=== PATIENT | male | born 1945 | race Caucasian/White ===

== ENCOUNTER 2021-08-10 01:06 | Outpatient (CLI) | payer MEDICARE, SELFPAY ==
[2021-08-10 11:55] LABS: Source Nasal/Nares
[2021-08-10 16:25] LABS: COVID-19 PCR Negative (Negative)
== END 2021-08-10 01:07 | disposition home or self-care (01) ==
LOC: LBO 01:06
PROVIDERS: PCP Internal Medicine; Visit Provider Ophthalmology
DX: Z20.822 Contact with and (suspected) exposure to COVID-19 (principal); Z01.818 Encounter for other preprocedural examination
CPT/HCPCS: 87635

== ENCOUNTER 2021-08-12 09:00 | Day surgery (SDC) | payer MEDICARE, SELFPAY ==
[2021-08-12 09:17] VITALS: BP 150/95; PULSE 77; RESP 16; TEMP 36.2; O2SAT 98
[2021-08-12] MEDS: Tropicam./Phenyleph. (1/2.5%) 5 ML BTL OD ×3 (09:25→09:35)
--- NOTE | 2021-08-12 09:59 | ANES.PREOP_ITS ---
General Info Date of Service Date Performed: 08/12/21 Height: 5 ft 6 in Weight: 72.3 kg Body Mass Index (BMI): 25.7 Surgical Procedure: Operation Date: 08/12/21 10:40 Proposed Procedure Side Surgeon p Cataract Extraction with IOL Implant Right Guanaco Hilton MD Meds Allergies and Home Medications Allergies Allergy/AdvReac Type Severity Reaction Status Date / Time No Known Allergies Allergy Verified 08/12/21 09:22 Home Medication Medication Instructions Recorded rosuvastatin 20 mg tablet 20 mg PO DAILY 08/11/21 amlodipine 5 mg tablet 5 mg PO DAILY 08/12/21 Current Visit Medications: Current Medications Generic Name Dose Route Start Last Admin Trade Name Freq PRN Reason Stop Dose Admin Acetaminophen 1,000 mg 08/12/21 06:00 Acetaminophen 500 Mg Tab PO Q4H PRN PRN Miscellaneous Medication 0 ml 08/12/21 06:00 Prednisolone 1%, Moxifloxacin 0.5%, Nepafenac 0.1% 5ml Btl OD DIRECTED [facility] Miscellaneous Medication 0 ml 08/12/21 06:00 08/12/21 09:35 Tropicam./Phenyleph. (1/2.5%) 5 Ml Btl OD 1 drp DIRECTED BENEDICT Administration Tetracaine HCl 0 ml 08/12/21 06:00 Tetracaine 0.5% 4 Ml Btl OD DIRECTED [facility] Medical History Medical History Alcoholism BPH (benign prostatic hyperplasia) Chronic kidney disease, stage 2 (mild) Colon polyps Dizziness Gastric ulcer GERD (gastroesophageal reflux disease) Hypercholesterolemia Hypertension Lung nodule Nephrolithiasis Neuropathy Spinal fracture, closed Unilateral recurrent inguinal hernia without obstruction or gangrene Surgical History Surgical History Repair of inguinal hernia Tobacco Smoking/Tobacco Use Status: Former Tobacco Use Alcohol Alcohol Intake: former Substance Use Substance use type: does not use Vital Signs and Lab Results Vital Signs Most Recent Vital Signs in EMR: Most Recent Vital Signs Temp Pulse Resp BP Pulse Ox 36.2 C L 77 16 150/95 H 98 08/12/21 09:17 08/12/21 09:17 08/12/21 09:17 08/12/21 09:17 08/12/21 09:17 Lab Results Blood Type / Crossmatch: No Data to Display Complete Blood Count: No Data to Display Complete Metabolic Panel: No Data to Display Liver Function Panel: No Data to Display Coagulation Panel: No Data to Display Cardiac Panel: No Data to Display Arterial Blood Gas: No Data to Display Venous Blood Gas: No Data to Display Pancreas Panel: No Data to Display Thyroid Panel: No Data to Display Infectious Disease: Coronavirus (COVID-19)(PCR) Negative (Negative) 08/10/21 10:37 08/10/21 Coronavirus 2019 Source Nasal/Nares 08/10/21 10:37 08/10/21 Blood Cultures: No Data to Display Toxicology Panel: No Data to Display Anesthesia Assessment and Plan Anesthesia History Personal History: No History of Anesthesia Complications Family History: No Family History of Anesthesia Complications Exercise Tolerance Exercise Tolerance: Metabolic Equivalents>4 Pertinent Negatives Pertinent Negatives: No Symptoms of GERD Cardiac & Pulmonary Exam Cardiac Exam: Normal S1/S2 Heart Sounds Pulmonary Exam: Clear Bilateral Breath Sounds Implantable Cardiac Device Does patient have a Pacemaker or an ICD?: No Airway Exam Known Difficult Airway: No Mallampati Class: 2 Mouth Opening: Normal (> 3cm) Thyromental Distance: Greater than 3 cm Neck Range of Motion: Full ROM Neck Circumference: Normal Teeth Condition: Normal Dentition ASA Classification ASA Score: ASA 2 Emergency Case?: No NPO Status NPO Status: NPO Clears >2 hours, Solids >8 hours Anesthesia Plan Resuscitation Status: Full Code Anesthesia Technique: MAC Anesthesia Airway Planned: Natural Airway Monitors Used: Standard Monitors
[2021-08-12 10:25] VITALS: BMI 25.7
[2021-08-12] MEDS: Tetracaine 0.5% 4 ML BTL OD (10:39)
[2021-08-12] MEDS: Lidocaine 2% Jelly 6 ML SYR (10:40)
[2021-08-12] MEDS: Triamcinolone 40 MG/ML VIAL (10:55)
[2021-08-12] MEDS: Balanced Salt Soln.-PLUS 500 ML BAG (10:55)
[2021-08-12] MEDS: Duovisc Viscoelastic System EACH 1 EACH (10:56)
[2021-08-12] MEDS: Povidone-Iodine Ophth 30 ML BTL (10:57)
[2021-08-12 11:18] VITALS: BP 146/82; PULSE 62; RESP 16; TEMP 36.7; O2SAT 97
--- NOTE | 2021-08-12 11:18 | W.PM.DSUDISC ---
Discharge Plan Disposition Patient Disposition: HOME Condition: Good Discharge Details Attending Provider: Guanaco Hilton Primary Care Provider: Deysi Goode Home Meds and New Rx's Prescriptions: No Action rosuvastatin 20 mg tablet 20 mg PO DAILY 0RF amlodipine 5 mg tablet 5 mg PO DAILY 0RF Discharge Instructions Stand Alone Forms: Post-op Topical Cataract, Tere Austin ([facility]) Discharge Orders Discharge Orders: Discharge Order (Routine); Ordered 08/12/21 Ordered By: Guanaco Hilton DS: Diagnosis Discharge Diagnosis (1) Cortical cataract of right eye: Status: Resolved (2) Nuclear sclerotic cataract of right eye: Status: Resolved (3) Posterior subcapsular age-related cataract, right eye: Status: Resolved
--- NOTE | 2021-08-12 11:20 | W.PM.OP ---
Date of service: 08/12/21 Time of Service: 11:20 Operative Note Operative Note DATE OF PROCEDURE: 01/17/21 PRE-OP DIAGNOSIS: Nuclear/cortical/posterior subcapsular cataract, right eye Epiretinal membrane/macular pucker, right eye POST-OP DIAGNOSIS: same PROCEDURE: Cataract extraction using phacoemulsification with intraocular lens implant, right eye SURGEON: Guanaco Hilton ANESTHESIA TYPE: Local By Surgeon and MAC Refer to Anesthesia Record ESTIMATED BLOOD LOSS: 0 PATHOLOGY: none sent COMPLICATIONS: None Patient was transported to: same day Patient's condition: stable Implants: Thomas & Thomas/MELY Tecnis [id number] Indications: Progressive visual loss due to cataract, right eye Procedure Description: CATARACT SURGERY OPERATIVE REPORT PREOPERATIVE DIAGNOSIS: 1. Nuclear/cortical/posterior subcapsular cataract, right eye 2. Epiretinal membrane/macular pucker, right eye POSTOPERATIVE DIAGNOSIS: Same OPERATION: 1. Cataract extraction using phacoemulsification with posterior chamber intraocular lens implant, right eye. IOL: IOL Machine Operator Replanter/Model: Thomas & Thomas / MELY Tecnis [id number] IOL Power: + 21.0 diopters IOL Serial Number: [id number] Optic Diameter: 6.0mm Haptic/Overall Diameter: 13.0mm PHACO INFO: Antonio Centurion Vision System with OZil and Active Fluidics Cumulative Dispersed Energy (CDE): 9.28 seconds SURGEON: Guanaco Hilton MD, KIERSTEN ANESTHESIA: Monitored Anesthesia Care (MAC), with local sub-tenon's anesthetic infiltration COMPLICATIONS: None SPECIMENS: None INDICATIONS FOR PROCEDURE: The patient is a 75-year-old gentleman with history of progressive decreased vision in his right eye secondary to the development of nuclear/cortical/posterior subcapsular cataract. He has a history of trauma to the right eye and epiretinal membrane with macular puckering of the right eye. The option of cataract surgery was offered to the patient and he felt he was symptomatic enough that he wished to proceed, understanding that postoperative visual acuity will be limited by the presence of his pre-existing maculopathy. PROCEDURE: The correct surgical eye was identified and marked as the right eye and the pupil was dilated in the preoperative area using mydriatics and cycloplegics. The dilated pupil size was 5.0 mm. He elected to proceed without oral sedation.The patient was brought to the operating room where cardiopulmonary monitoring was instituted and surgical time-out was performed, confirming the correct operative eye and IOL power. Topical anesthesia was administered and ophthalmic povidone-iodine 5% was instilled into the conjunctival fornices. Lidocaine gel was applied to the cornea and the mackenzie-ocular area was prepped with Betadine 10% solution and draped in the usual sterile fashion for intraocular surgery, including an aperture drape. A Tegaderm transparent film dressing was cut in half and used to cover the lashes and lid margins. Care was taken to sequester the lashes and lid margins under the Tegaderm dressing. A lid speculum was placed between the lids of the operative eye and the Antonio [employer] operating microscope was maneuvered into position. Lucina scissors were then used to make a conjunctival buttonhole approximately 6mm posterior to the limbus in the inferonasal quadrant. Blunt dissection was carried out to expose bare sclera, and a blunt-tipped sub-tenon?s anesthesia cannula was introduced and passed posteriorly along the globe where non-preserved plain lidocaine was injected into posterior sub-Tenon?s space. A sideport knife was used to make a paracentesis port inferotemporally. Intraocular phenylephrine/lidocaine was injected into the anterior chamber. The anterior chamber was filled with viscoelastic. A 2.4mm keratome knife was used to create a half-thickness groove at the limbus and then to construct a three-plane near-clear corneal tunnel extending 2.0mm into clear cornea superiortemporally. A flap was raised on the anterior capsule and capsulorhexis forceps were used to complete a continuous curvilinear capsulorhexis of 5.0 mm. Balanced salt solution was then used to perform cortical cleaving hydrodissection and nuclear hydrodelineation until the lens could be freely rotated within the capsular bag. The lens nucleus was then disassembled and removed within the capsular bag and iris plane using phacoemulsification. Residual cortical material was removed using the I/A handpiece. The posterior capsule was carefully polished to remove as much residual lens epithelial cells as safely possible. The capsular bag was then inflated and the anterior chamber deepened with viscoelastic. The lens implant described above was inserted into the capsular bag using the MELY [place] Injector. A Kuglen hook was used to dial the IOL into position. Residual viscoelastic was then removed first from posterior to the IOL, then from the anterior chamber using the I/A handpiece. The lens implant was noted to center nicely within the capsular bag. The incisions were stromally hydrated, and the anterior chamber was reformed using BSS. Then 0.5cc of moxifloxacin 1.0mg/ml were injected into the capsular bag and anterior chamber. The incisions were checked with a Weck spear and found to be secure. Conclusion of the procedure, Kenalog 20 mg in 0.5 cc was injected into the posterior sub-tenon's space using the anesthesia injection cannula. Several drops of ophthalmic povidone-iodine 5% were then applied to the eye followed by two drops of Imprimis combination prednisolone/moxifloxacin/nepafenac solution. The drapes were removed and a clear plastic protective eye shield was placed over the eye. The patient was then returned to Same Day Surgery in stable condition.
--- NOTE | 2021-08-12 12:09 | W.ANESPOSTOP ---
Postoperative Evaluation Date, Time and Location Date Performed: 08/12/21 Time Performed: 11:20 Patient Location: Day Surgery Unit Vital Signs Most Recent Imported Vital Signs: Most Recent Vital Signs Temp Pulse Resp BP Pulse Ox 36.7 C 62 16 146/82 H 97 08/12/21 11:18 08/12/21 11:18 08/12/21 11:18 08/12/21 11:18 08/12/21 11:18 Pain Score Most Recent Pain Score: Most Recent Pain Score Pain Level 0 08/12/21 11:18 Assessment Mental Status: Awake (Alert & Oriented to Patient Baseline) Airway and Respiratory Function: Patent airway with normal (patient baseline) respiratory exam Cardiovascular Function: Hemodynamically Stable Hydration Status: Adequately Hydrated Nausea & Vomiting: No Nausea or Vomiting Pain: Pt. Denies Any Pain Peripheral Nerve Block: Patient did not receive a nerve block
== END 2021-08-12 11:42 | disposition home or self-care (01) ==
PROVIDERS: PCP Internal Medicine; Visit Provider Ophthalmology
PROC: (CPT 66984; principal; 2021-08-12 10:30)
DX: H25.041 Posterior subcapsular polar age-related cataract, right eye (principal); H35.371 Puckering of macula, right eye; I10 Essential (primary) hypertension; E78.00 Pure hypercholesterolemia, unspecified; N40.0 Benign prostatic hyperplasia without lower urinary tract symptoms; N18.2 Chronic kidney disease, stage 2 (mild); K25.3 Acute gastric ulcer without hemorrhage or perforation; F10.21 Alcohol dependence, in remission
CPT/HCPCS: 66984; V2632

== ENCOUNTER 2021-08-24 01:19 | Outpatient (CLI) | payer MEDICARE, SELFPAY ==
[2021-08-24 12:23] LABS: Source Nasal/Nares
[2021-08-24 14:19] LABS: COVID-19 PCR Negative (Negative)
== END 2021-08-24 01:20 | disposition home or self-care (01) ==
LOC: LBO 01:20
PROVIDERS: PCP Internal Medicine; Visit Provider Ophthalmology
DX: Z20.822 Contact with and (suspected) exposure to COVID-19 (principal); Z01.818 Encounter for other preprocedural examination
CPT/HCPCS: 87635

== ENCOUNTER 2021-08-26 08:45 | Day surgery (SDC) | payer MEDICARE, SELFPAY ==
[2021-08-26 09:13] VITALS: BP 137/93; PULSE 71; RESP 16; TEMP 36.3; O2SAT 99
[2021-08-26] MEDS: Tropicam./Phenyleph. (1/2.5%) 5 ML BTL OS ×3 (09:30→09:41)
--- NOTE | 2021-08-26 09:35 | W.ANESPRE ---
General Info Date of Service Date Performed: 08/26/21 Height: 5 ft 6 in Weight: 71.6 kg Body Mass Index (BMI): 25.4 Surgical Procedure: Operation Date: 08/26/21 11:40 Proposed Procedure Side Surgeon p Cataract Extraction with IOL Implant Left Guanaco Hilton MD Meds Allergies and Home Medications Allergies Allergy/AdvReac Type Severity Reaction Status Date / Time No Known Allergies Allergy Verified 08/26/21 09:12 Home Medication Medication Instructions Recorded rosuvastatin 20 mg tablet 20 mg PO DAILY 08/11/21 amlodipine 5 mg tablet 5 mg PO DAILY 08/12/21 Current Visit Medications: Current Medications Generic Name Dose Route Start Last Admin Trade Name Freq PRN Reason Stop Dose Admin Acetaminophen 1,000 mg 08/26/21 06:00 Acetaminophen 500 Mg Tab PO Q4H PRN PRN Miscellaneous Medication 0 ml 08/26/21 06:00 Prednisolone 1%, Moxifloxacin 0.5%, Nepafenac 0.1% 5ml Btl OS DIRECTED [facility] Miscellaneous Medication 0 ml 08/26/21 06:00 08/26/21 09:30 Tropicam./Phenyleph. (1/2.5%) 5 Ml Btl OS 1 drp DIRECTED BENEDICT Administration Tetracaine HCl 0 ml 08/26/21 06:00 Tetracaine 0.5% 4 Ml Btl OS DIRECTED [facility] PFSH Active Problems Active Problems: Problem Status Onset Code Cortical cataract of right eye H26.9 Nuclear sclerotic cataract of right eye H25.11 Posterior subcapsular age-related cataract, right eye H25.041 Nuclear sclerotic cataract of left eye H25.12 Cortical cataract of left eye H26.9 Posterior subcapsular age-related cataract of left eye H25.042 Medical History Medical History Alcoholism BPH (benign prostatic hyperplasia) Chronic kidney disease, stage 2 (mild) Colon polyps Dizziness Gastric ulcer GERD (gastroesophageal reflux disease) Hypercholesterolemia Hypertension Lung nodule Nephrolithiasis Neuropathy Spinal fracture, closed Unilateral recurrent inguinal hernia without obstruction or gangrene Surgical History Surgical History (Updated 08/26/21 @ 09:12 by Joseph Arteaga) Hx of tonsillectomy Repair of inguinal hernia Tobacco Smoking/Tobacco Use Status: Former Tobacco Use Alcohol Alcohol Intake: former Substance Use Substance use type: does not use Vital Signs and Lab Results Vital Signs Most Recent Vital Signs in EMR: Most Recent Vital Signs Temp Pulse Resp BP Pulse Ox 36.3 C L 71 16 137/93 H 99 08/26/21 09:13 08/26/21 09:13 08/26/21 09:13 08/26/21 09:13 08/26/21 09:13 Lab Results Blood Type / Crossmatch: No Data to Display Complete Blood Count: No Data to Display Complete Metabolic Panel: No Data to Display Liver Function Panel: No Data to Display Coagulation Panel: No Data to Display Cardiac Panel: No Data to Display Arterial Blood Gas: No Data to Display Venous Blood Gas: No Data to Display Pancreas Panel: No Data to Display Thyroid Panel: No Data to Display Infectious Disease: Coronavirus (COVID-19)(PCR) Negative (Negative) 08/24/21 10:48 08/24/21 Coronavirus 2019 Source Nasal/Nares 08/24/21 10:48 08/24/21 Blood Cultures: No Data to Display Toxicology Panel: No Data to Display Anesthesia Assessment and Plan Anesthesia History Personal History: No History of Anesthesia Complications Family History: No Family History of Anesthesia Complications Exercise Tolerance Exercise Tolerance: Metabolic Equivalents>4 Pertinent Negatives Pertinent Negatives: No Symptoms of GERD Cardiac & Pulmonary Exam Cardiac Exam: Normal S1/S2 Heart Sounds Pulmonary Exam: Clear Bilateral Breath Sounds Implantable Cardiac Device Does patient have a Pacemaker or an ICD?: No Airway Exam Known Difficult Airway: No Mallampati Class: 2 Mouth Opening: Normal (> 3cm) Thyromental Distance: Greater than 3 cm Neck Range of Motion: Full ROM Neck Circumference: Normal Teeth Condition: Normal Dentition ASA Classification ASA Score: ASA 2 Emergency Case?: No NPO Status NPO Status: NPO Clears >2 hours, Solids >8 hours Anesthesia Plan Resuscitation Status: Full Code Anesthesia Technique: MAC Anesthesia Airway Planned: Natural Airway Monitors Used: Standard Monitors
[2021-08-26 10:01] VITALS: BMI 25.4
[2021-08-26] MEDS: Balanced Salt Soln.-PLUS 500 ML BAG (10:21)
[2021-08-26] MEDS: Tetracaine 0.5% 4 ML BTL OS (10:21)
[2021-08-26] MEDS: Duovisc Viscoelastic System EACH 1 EACH (10:22)
[2021-08-26] MEDS: Lidocaine 2% Jelly 6 ML SYR (10:23)
[2021-08-26] MEDS: Povidone-Iodine Ophth 30 ML BTL (10:24)
--- NOTE | 2021-08-26 10:41 | W.PM.DSUDISC ---
Discharge Plan Disposition Patient Disposition: HOME Condition: Good Discharge Details Attending Provider: Guanaco Hilton Primary Care Provider: Deysi Goode Home Meds and New Rx's Prescriptions: No Action rosuvastatin 20 mg tablet 20 mg PO DAILY 0RF amlodipine 5 mg tablet 5 mg PO DAILY 0RF Discharge Instructions Stand Alone Forms: Post-op Topical Cataract, Tere Austin ([facility]) Discharge Orders Discharge Orders: Discharge Order (Routine); Ordered 08/26/21 Ordered By: Guanaco Hilton DS: Diagnosis Discharge Diagnosis (1) Nuclear sclerotic cataract of left eye: Status: Resolved (2) Cortical cataract of left eye: Status: Resolved (3) Posterior subcapsular age-related cataract of left eye: Status: Resolved
--- NOTE | 2021-08-26 10:42 | ROE_ITS ---
Date of service: 08/26/21 Time of Service: 10:42 Operative Note Operative Note DATE OF PROCEDURE: 08/26/21 PRE-OP DIAGNOSIS: Nuclear/cortical/posterior subcapsular cataract, left eye Poorly dilating pupil, left POST-OP DIAGNOSIS: same PROCEDURE: Cataract extraction by phacoemulsification with intraocular lens implantation, left eye, with pupillary expansion device SURGEON: Guanaco Hilton ANESTHESIA TYPE: Local By Surgeon and MAC Refer to Anesthesia Record ESTIMATED BLOOD LOSS: 0 PATHOLOGY: none sent COMPLICATIONS: None Patient was transported to: same day Patient's condition: stable Implants: Thomas and Thomas / [employer] Tecnis [id number] Indications: Progressive decreased vision, left eye Poorly dilating pupil, left eye. Procedure Description: CATARACT SURGERY OPERATIVE REPORT PREOPERATIVE DIAGNOSIS: 1. Nuclear/cortical/posterior subcapsular cataract, 2. Poorly dilating pupil, left eye POSTOPERATIVE DIAGNOSIS: Same OPERATION: 1. Cataract extraction using phacoemulsification with posterior chamber intraocular lens implant, left eye. 2. Pupillary dilation and iris stabilization using Malyugin Ring IOL; IOL Driller Multiple Spindle/Model: Thomas & Thomas / MELY Tecnis [id number] IOL Power: + 22.5 diopters IOL Serial Number: [id number] Optic Diameter: 6.0 mm Haptic/Overall Diameter: 13.00 mm PHACO INFO: Antonio [employer] Vision System with OZil and Active Fluidics Cumulative Dispersed Energy (CDE): 7.01 seconds SURGEON: Guanaco Hilton MD, KIERSTEN ANESTHESIA: Monitored Anesthesia Care (MAC), with local sub-tenon's anesthetic infiltration COMPLICATIONS: None SPECIMENS: None INDICATIONS FOR PROCEDURE: The patient is a 75-year-old gentleman with history of diminished visual acuity in both eyes secondary to development of bilateral cataracts. He has already undergone cataract surgery in the right eye and is doing well postoperatively, although postoperative visual acuity is compromised by the presence of epiretinal membrane/macular pucker in the right eye he now presents for cataract surgery in the left eye. PROCEDURE: The correct surgical eye was identified and marked as the left eye and the pupil was dilated in the preoperative area using mydriatics, cycloplegics, and NSAIDS (except in aspirin allergic patients). The dilated pupil size was 4.0 mm. He elected to proceed without oral sedation. The patient was brought to the operating room where cardiopulmonary monitoring was instituted and surgical time-out was performed, confirming the correct operative eye and IOL power. Topical anesthesia was administered and ophthalmic povidone-iodine 5% was instilled into the conjunctival fornices. Lidocaine gel was applied to the cornea and the mackenzie-ocular area was prepped with Betadine 10% solution and draped in the usual sterile fashion for intraocular surgery, including an aperture drape. A Tegaderm transparent film dressing was cut in half and used to cover the lashes and lid margins. Care was taken to sequester the lashes and lid margins under the Tegaderm dressing. A lid speculum was placed between the lids of the operative eye and the [employer] operating microscope was maneuvered into position. Lucina scissors were then used to make a conjunctival buttonhole approximately 6mm posterior to the limbus in the inferonasal quadrant. Blunt dissection was carried out to expose bare sclera, and a blunt-tipped sub-tenon?s anesthesia cannula was introduced and passed posteriorly along the globe where non- preserved plain lidocaine was injected into posterior sub-Tenon?s space. A sideport knife was used to make a paracentesis port superiorl y/superiortemporally. Intraocular phenylephrine/lidocaine was injected into the anterior chamber. The anterior chamber was then filled with viscoelastic. A 2.4mm keratome knife was used to create a half-thickness groove at the limbus and then to construct a three-plane near-clear corneal tunnel extending 2.0mm into clear cornea at the temporal position. A seven-point mm Malyugin Ring was then inserted into the pupillary space and engaged with the Kuglen hook. A flap was raised on the anterior capsule and capsulorhexis forceps were used to complete a continuous curvilinear capsulorhexis of five-point mm. Balanced salt solution was then used to perform cortical cleaving hydrodissection and nuclear hydrodelineation until the lens could be freely rotated within the capsular bag. The lens nucleus was then disassembled and removed within the capsular bag and iris plane using phacoemulsification. Residual cortical material was removed using the 45-degree angled silicone I/A tip with 0.3mm port. The posterior capsule was carefully polished to remove as much residual lens epithelial cells as safely possible. The capsular bag was then inflated and the anterior chamber deepened with viscoelastic. The lens implant described above was inserted into the capsular bag using the MELY [place] Injector. A Kuglen hook was used to dial the IOL into position. The Malyugin Ring was removed in the reverse order of its insertion. Residual viscoelastic was then removed first from posterior to the IOL, then from the anterior chamber using the I/A handpiece. The lens implant was noted to center nicely within the capsular bag. The incisions were stromally hydrated, and the anterior chamber was reformed using BSS. Then 0.5cc of moxifloxacin 1.0mg/ml were injected into the capsular bag and anterior chamber. The incisions were checked with a Weck spear and found to be secure. Several drops of ophthalmic povidone-iodine 5% were then applied to the eye followed by two drops of Imprimis combination prednisolone/moxifloxacin/nepafenac solution. The drapes were removed and a clear plastic protective eye shield was placed over the eye. The patient was then returned to Same Day Surgery in stable condition.
[2021-08-26 10:45] VITALS: BP 153/85; PULSE 65; RESP 16; TEMP 36.7; O2SAT 99
--- NOTE | 2021-08-26 11:04 | W.ANESPOSTOP ---
Postoperative Evaluation Date, Time and Location Date Performed: 08/26/21 Time Performed: 10:45 Patient Location: Day Surgery Unit Vital Signs Most Recent Imported Vital Signs: Most Recent Vital Signs Temp Pulse Resp BP Pulse Ox 36.7 C 65 16 153/85 H 99 08/26/21 10:45 08/26/21 10:45 08/26/21 10:45 08/26/21 10:45 08/26/21 10:45 Pain Score Most Recent Pain Score: Most Recent Pain Score Pain Level 0 08/26/21 10:45 Assessment Mental Status: Awake (Alert & Oriented to Patient Baseline) Airway and Respiratory Function: Patent airway with normal (patient baseline) respiratory exam Cardiovascular Function: Hemodynamically Stable Hydration Status: Adequately Hydrated Nausea & Vomiting: No Nausea or Vomiting Pain: Pt. Denies Any Pain Peripheral Nerve Block: Patient did not receive a nerve block
== END 2021-08-26 11:16 | disposition home or self-care (01) ==
PROVIDERS: PCP Internal Medicine; Visit Provider Ophthalmology
PROC: (CPT 66982; principal; 2021-08-26 11:30)
DX: H25.042 Posterior subcapsular polar age-related cataract, left eye (principal); H57.03 Miosis; K21.9 Gastro-esophageal reflux disease without esophagitis; N40.0 Benign prostatic hyperplasia without lower urinary tract symptoms; F10.20 Alcohol dependence, uncomplicated; N18.2 Chronic kidney disease, stage 2 (mild); I12.9 Hypertensive chronic kidney disease with stage 1 through stage 4 chronic kidney disease, or unspecified chronic kidney disease
CPT/HCPCS: 66982; V2632